=== PATIENT | female | born 2000 | race African-American/Black ===

== ENCOUNTER 2025-01-16 10:38 | Inpatient (IN) | payer OTHER ==
[2025-01-16 11:03] LABS: Hematocrit 43.3 % (36.0-47.0); Hemoglobin 14.1 g/dL (12.0-16.0); Mean Corpuscular Hemoglobin 27.6 pg (27.0-31.0); Mean Corpuscular Volume 84.7 fL (78.0-98.0); Platelet Count 317 10x3/uL (130-400); Red Blood Cell (RBC) Count 5.11 mill/uL (4.20-5.40); White Blood Cell (WBC) Count 9.29 10x3/uL (4.8-10.8)
[2025-01-16 11:24] LABS: Platelet Adequacy Comment Platelets Normal
[2025-01-16 11:42] LABS: ALT (SGPT) 13 U/L (Less than 34); AST (SGOT) 28 U/L (11-34); Albumin 4.7 g/dL (3.1-4.5); Alkaline Phosphatase 60 U/L (40-110); Anion Gap 19 mmol/L (10-20); BUN (Urea Nitrogen) 10 mg/dL (7.0-18.7); Bilirubin, Total 0.2 mg/dL (0.3-1.2); CK (CPK) 192 U/L (29-168); Calc. Creatinine Clearance 0 mL/min (70-130); Calcium 10.7 mg/dL (7.8-10.44); Carbon Dioxide 20 mmol/L (22-29); Chloride 110 mmol/L (98-107); Globulin 3.8 g/dL (2.4-3.5); Glucose 111 mg/dL (70-105); Potassium 4.5 mmol/L (3.5-5.1); Sodium 144 mmol/L (136-145)
[2025-01-16 12:38] LABS: Bacteria/HPF None Seen HPF (None Seen); CAUTI Indications for Culture Fever or rigors; Glucose, Urine (Dipstick) Normal (Negative); Leukocyte Negative Leu/uL (Negative); Protein, Urine (Dipstick) Negative (Neg-Trace); RBC/HPF 0-3 HPF (0-3); Specific Gravity, Urine 1.007 (1.002-1.036); WBC/HPF 0-3 HPF (0-3)
[2025-01-16 12:44] LABS: Urine Culture Reflex No No
[2025-01-16 13:18] LABS: Acetaminophen Less than 10 mcg/mL (Less than 10); Salicylate Less than 8.0 mg/dL (Less than 8.0)
[2025-01-16] MEDS ORDERED: Ondansetron PF 4 MG/2 ML Vial IVP PRN (13:49)
[2025-01-16] MEDS ORDERED: Calcium Carbonate 500 MG ChewTAB PO PRN (13:49)
[2025-01-16] MEDS ORDERED: Acetaminophen 325 MG TAB PO PRN (13:49)
[2025-01-16 13:50] LABS: Cocaine Metabolite Screen Negative (Negative); THC/Cannabinoid Screen Negative (Negative); Tricyclic Screen Negative (Negative)
[2025-01-16 14:30] LABS: Magnesium 2.4 mg/dL (1.6-2.6)
[2025-01-16 18:09] VITALS: BMI 19.8
[2025-01-17 05:47] LABS: #Basophils Less than 0.03 10x3/uL (0.0-0.2); #Eosinophils Less than 0.03 10x3/uL (0.0-0.7); #Monocytes 0.76 10x3/uL (0.11-0.59); #Neutrophils 6.42 10x3/uL (1.40-6.50); %Basophils 0.2 % (0.0-1.0); %Eosinophils 0.2 % (0.0-10.0); %Lymphocytes 17.1 % (21.0-51.0); %Monocytes 8.7 % (0.0-10.0); %Neutrophils 73.6 % (42.0-75.0); Hematocrit 35.5 % (36.0-47.0); Hemoglobin 11.8 g/dL (12.0-16.0); Mean Corpuscular Hemoglobin 28.1 pg (27.0-31.0); Mean Corpuscular Volume 84.5 fL (78.0-98.0); Platelet Count 215 10x3/uL (130-400); Red Blood Cell (RBC) Count 4.20 mill/uL (4.20-5.40); White Blood Cell (WBC) Count 8.73 10x3/uL (4.8-10.8)
[2025-01-17 06:12] LABS: ALT (SGPT) 223 U/L (Less than 34); AST (SGOT) 364 U/L (11-34); Albumin 3.4 g/dL (3.1-4.5); Alkaline Phosphatase 55 U/L (40-110); Anion Gap 8 mmol/L (10-20); BUN (Urea Nitrogen) 9 mg/dL (7.0-18.7); Bilirubin, Total 0.3 mg/dL (0.3-1.2); Calc. Creatinine Clearance 89 mL/min (70-130); Calcium 8.7 mg/dL (7.8-10.44); Carbon Dioxide 24 mmol/L (22-29); Chloride 111 mmol/L (98-107); Globulin 2.8 g/dL (2.4-3.5); Glucose 92 mg/dL (70-105); Potassium 3.4 mmol/L (3.5-5.1); Sodium 140 mmol/L (136-145)
[2025-01-18 05:22] LABS: #Basophils 0.03 10x3/uL (0.0-0.2); #Eosinophils 0.06 10x3/uL (0.0-0.7); #Monocytes 0.78 10x3/uL (0.11-0.59); #Neutrophils 3.53 10x3/uL (1.40-6.50); %Basophils 0.5 % (0.0-1.0); %Eosinophils 1.0 % (0.0-10.0); %Lymphocytes 27.1 % (21.0-51.0); %Monocytes 12.9 % (0.0-10.0); %Neutrophils 58.3 % (42.0-75.0); Hematocrit 38.6 % (36.0-47.0); Hemoglobin 12.4 g/dL (12.0-16.0); Mean Corpuscular Hemoglobin 27.3 pg (27.0-31.0); Mean Corpuscular Volume 85.0 fL (78.0-98.0); Platelet Count 234 10x3/uL (130-400); Red Blood Cell (RBC) Count 4.54 mill/uL (4.20-5.40); White Blood Cell (WBC) Count 6.05 10x3/uL (4.8-10.8)
[2025-01-18 05:40] LABS: ALT (SGPT) 479 U/L (Less than 34); AST (SGOT) 425 U/L (11-34); Albumin 3.6 g/dL (3.1-4.5); Alkaline Phosphatase 52 U/L (40-110); Anion Gap 8 mmol/L (10-20); BUN (Urea Nitrogen) 11 mg/dL (7.0-18.7); Bilirubin, Total 0.2 mg/dL (0.3-1.2); CK (CPK) 223 U/L (29-168); Calc. Creatinine Clearance 83 mL/min (70-130); Calcium 9.5 mg/dL (7.8-10.44); Carbon Dioxide 21 mmol/L (22-29); Chloride 110 mmol/L (98-107); Globulin 3.1 g/dL (2.4-3.5); Glucose 80 mg/dL (70-105); Potassium 4.3 mmol/L (3.5-5.1); Sodium 135 mmol/L (136-145)
[2025-01-18 08:45] LABS: BHCG - Serum Negative (NEGATIVE); Pregs Control Background? CLEAR/WHITE (CLR/WHITE); Pregs Control Bar Appear? YES (CONTROL BAR)
[2025-01-18 10:27] VITALS: BP 113/64; TEMP 98.2
== END 2025-01-18 16:28 | disposition home or self-care (01) | DRG 923 ==
LOC: ERS 10:38 → OBS 14:52 → OBSVTOIN 01-17 18:18
PROVIDERS: ADMIT Student in an Organized Health Care Education/Training Program; ATTEND Internal Medicine
DX: T67.09XA Other heatstroke and sunstroke, initial encounter (principal); N17.9 Acute kidney failure, unspecified; E87.20 Acidosis, unspecified; M62.82 Rhabdomyolysis; E86.0 Dehydration; E87.6 Hypokalemia
CPT/HCPCS: 36415; 70450; 76700; 80053; 80306; 80307; 81001; 82550; 83605; 83735; 84439; 84443; 84703; 85025; 93005; 93306; 96374; 96376; G0378; J2060; J3480; J7120